=== PATIENT | male | born 1975 | race African-American/Black ===

== ENCOUNTER 2024-09-18 14:27 | Emergency (ER) | payer OTHER ==
[~2024-09-18] VITALS: Ht 172.7 cm; Wt 90.7 kg
[~2024-09-18 14:27] MED LIST: ALBU90AE INH; AMLO10TA80 PO; ATOR10TA PO; FURO40TA5 PO; METO-385 PO
[2024-09-18 14:36] VITALS: O2SAT 94
[2024-09-18 15:16] LABS: BASOPHILS % 0.8 % (0.0-2.0); EOSINOPHILS % 2.5 % (0.0-5.0); HEMATOCRIT. 28.5 % (42.0-52.0); LYMPHOCYTES % 24.3 % (20.0-50.0); MEAN CORPUSCULAR HEMOGLOBIN 29.5 pg (28.0-32.0); MEAN CORPUSCULAR HGB CONC 31.6 g/dL (31.0-37.0); MEAN CORPUSCULAR VOLUME 93.3 fL (80.0-94.0); MEAN PLATELET VOLUME 7.5 fl (7.4-10.4); MONOCYTES % 6.3 % (2.0-8.0); NEUTROPHILS % 66.1 % (40.0-76.0); PLATELET 208 x1000/uL (130-400); RED BLOOD CELL COUNT 3.06 mill/uL (4.7-6.1); WHITE BLOOD COUNT 5.4 x1000/uL (4.5-11.0)
[2024-09-18 15:22] LABS: CHLORIDE 107 mEq/L (98-107); DIFFERENTIAL COMMENT 1; POTASSIUM 4.9 mEq/L (3.5-5.1); SODIUM 142 mEq/L (136-145)
[2024-09-18 15:23] LABS: CARBON DIOXIDE 24 mEq/L (21-32)
[2024-09-18] MEDS: FUROSEMIDE 40MG/4ML VIAL IV ONE (15:23)
[2024-09-18 15:24] LABS: CALCIUM 8.9 mg/dL (8.7-10.4)
[2024-09-18 15:28] LABS: CREATININE 2.6 mg/dL (0.6-1.3); GLUCOSE 94 mg/dL (70-105)
[2024-09-18 15:29] LABS: INR 1.1; PARTIAL THROMBOPLASTIN TIME 26.3 sec (23.4-31.0); UREA NITROGEN BLOOD 52 mg/dL (9-23)
[2024-09-18 15:30] LABS: TROPONIN I HIGH SENSITIVITY 30 ng/L (3.0-53)
[2024-09-18 17:57] VITALS: BP 142/101; PULSE 107; RESP 23; TEMP 36.4; O2SAT 90
== END 2024-09-18 18:26 | disposition short-term general hospital (02) ==
LOC: ER 14:27
DX: I11.0 Hypertensive heart disease with heart failure (principal); I50.9 Heart failure, unspecified; J44.9 Chronic obstructive pulmonary disease, unspecified; I25.2 Old myocardial infarction; Z86.73 Personal history of transient ischemic attack (TIA), and cerebral infarction without residual deficits; Z79.899 Other long term (current) drug therapy
CPT/HCPCS: 80048; 83880; 83735; 85025; 85610; 85730; 84484; 36415; 71045; 93005; 96374; 99291; J1940; Z7610